=== PATIENT | female | born 1965 | race Caucasian/White ===

== ENCOUNTER 2016-08-26 21:11 | Observation (INO) | payer OTHER ==
[~2016-08-26] VITALS: Ht 162.6 cm; Wt 120.2 kg
--- NOTE | ~2016-08-26 | ECHO ---
Transthoracic Echocardiography Report (TTE) Demographics Patient Name JUAN F CALDERON Date of Study 08/27/2016 Patient Number [id number] Visit Number [id number] Date of 1965 Room Number G6313 Accession Number [id number] Gender Female Age 51 year(s) Referring Elijah Francisco MD [employer] Station Mechanic Rosie Herrera RVT, Physician RDJOSEE Physician Interpreting Cy Roy Machine Sewer Physician A Supervising Ordering Physician Cy Roy MD/MANA A Nurse Stress Pantograph Setter Conclusions Contractility Score Summary Normal Left Ventricular contractility was noted. Summary The estimated left ventricular ejection fraction is 60-65%. Mild concentric left ventricular hypertrophy. Diastolic assessment reveals normal relaxation. Mild tricuspid regurgitation by color Doppler. Procedure Type of Study TTE procedure:2D Echocardiogram. Procedure Date Date: 08/27/2016 Start: 10:46 AM Study Location: Inpatient Portable Technical Quality: Adequate visualization Indications:Chest pain. Appropriate Use Criteria: 8 Patient Status: Routine Rhythm: NSR HR: 71 bpm BP: 125/70 mmHg M-Mode/2D Measurements LV Diastolic Dimension: 4.73 cm LV Systolic Dimension: 3.02 cm LV Septum Diastolic: 0.95 cm LV PW Diastolic: 1.31 cm AO Root Dimension: 2.1 cm Cardiac Output: 4.55 l/min AV Cusp Separation: 1.6 cm RV Diastolic Dimension: 3.37 cm LA volume: 43 ml LVOT: 2 cm RV Base: 2.5 cm LVOT VTI: 20.4 cm RV Mid: 2.86 cm LV Stroke volume: 64.06 ml TAPSE: 1.66 cm TDI-S': 10.3 cm/s Doppler Measurements AV Peak Velocity: 1.23 m/s MV Peak E-Wave: 0.73 m/s AV Peak Gradient: 6.05 mmHg MV Peak A-Wave: 0.55 m/s AV Mean Gradient: 3 mmHg MV E/A Ratio: 1.31 LVOT Peak Velocity: 0.9 m/s MV P1/2t: 75 msec TR Gradient:24.4 mmHg PV Peak Velocity: 1.01 m/s Estimated RAP:5 mmHg PV Peak Gradient: 4.08 mmHg Estimated RVSP: 29 mmHg Estimated PASP: 29.4 mmHg E' Septal Velocity: 0.08 m/s A' Septal Velocity: 0.1 m/s E' Lateral Velocity: 0.1 m/s A' Lateral Velocity: 0.08 m/s Findings Left Ventricle Mild concentric left ventricular hypertrophy. Diastolic assessment reveals normal relaxation. Right Ventricle Normal right ventricular size Mildly reduced right ventricular function. Left Atrium Normal left atrial size. There is no evidence of patent foramen ovale or atrial septal defect by color Doppler. Right Atrium Normal right atrial size. IVC measures 1.50 cm with inspiratory collapse. Mitral Valve Normal mitral valve structure and function. Aortic Valve Normal aortic valve structure and function. Tricuspid Valve Mild tricuspid regurgitation by color Doppler. Normal estimated pulmonary artery pressure. Pulmonic Valve Normal pulmonic valve structure and function. Pericardial Effusion No evidence of pericardial effusion. Epicardial fat pad noted. Miscellaneous Visualized portions of the aortic root and ascending aorta appear normal in size. Pleural Effusion No evidence of pleural effusion. Contractility Score LV regional wall motion:(0-Non visualized 1-Normal 2-Hypokinesis 3-Akinesis 4-Dyskinesis 5-Aneurysm) Signature dtt: Farrah Benoit dtd: 08/27/16 1046 Physician Self Edit
--- NOTE | ~2016-08-26 | CON ---
PATIENT'S NAME: JUAN F CALDERON [facility] AGE: 51 Y [address] ROOM: [place] [address] LOCATION: GPCU ADMIT DATE: 08/26/2016 Consultation DISCHARGE DATE: 08/27/2016 FAMILY PHYSICIAN: Leonel Nava MD ATTENDING PHYSICIAN: Leonel Nava DATE OF CONSULTATION: 08/27/2016 REASON FOR CARDIOLOGY CONSULT: Chest pain. HISTORY OF PRESENT ILLNESS: This is a 51-year-old female, who has had complaints of atypical chest pain over the last 3 days that last anywhere from minutes to hours. She admits to the pain located in the precordial area and radiating down her left arm towards the ulnar aspect of her hand. She is unable to clearly related to activity. So far during this admission, her EKG and enzymes are negative for changes of ischemia. She underwent coronary angiography in 2010, that showed some narrowing in the proximal LAD and circumflex as well as [id number] LAD, although it was not fully reported on the printout. The cath images were reviewed by Dr. Benoit. There is also notation in the cath images of severe spasm of the RCA at the initial injection. At the time of this consult, the patient is resting in bed and continues to have off and on complaints of chest pain. PAST MEDICAL HISTORY: 1. Hypertension. 2. Hypercholesterolemia. 3. Diabetes mellitus type 2. She does not regularly monitor her blood sugars at home. 4. GERD. 5. Depression. 6. Obesity. FAMILY HISTORY: The patient's father due to an OR at the age of 49 as well as her grandfather had a history of myocardial infarction. She has one brother as well as a sister, who have diabetes mellitus. SOCIAL HISTORY: She is currently with 3 grandchildren. She has a history of smoking x10 years of about 3 cigarettes per day. 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 MEDICATIONS: PATIENT'S NAME: JUAN F CALDERON [facility] AGE: 51 Y [address] ROOM: [place] [address] LOCATION: GPCU ADMIT DATE: 08/26/2016 Consultation DISCHARGE DATE: 08/27/2016 FAMILY PHYSICIAN: Leonel Nava MD ATTENDING PHYSICIAN: Leonel Nava 1. Nitroglycerin drip IV with titration parameters for chest pain. 2. Protonix 40 mg p.o. daily. 3. NovoLog subcu on a mild sliding scale per a.c. and h.s. Accu-Cheks. MEDICATION ALLERGIES: No known medication allergies. REVIEW OF SYSTEMS: Pertinent positive review of systems listed in the HPI. All other review of systems evaluated and negative. PHYSICAL EXAMINATION: VITAL SIGNS: Temperature 97.6, pulse 78, respirations 16, blood pressure 127/70, and O2 saturation 95% on room air. The patient weighs 120.2 kg. SKIN: [place], warm, and dry. EYES: Sclerae clear. No xanthelasmas. ENT: Oral mucosa is pink and moist. No jugular venous distention or carotid bruits. CHEST: Respirations are even and unlabored. There are some basilar rales noted. HEART: Regular rate and rhythm. Normal S1 and S2. No murmurs, rubs, or gallops. ABDOMEN: Soft and nontender, but obese. MUSCULOSKELETAL: Gait is normal. EXTREMITIES: Peripheral pulses palpable, but noted to be 1+. No clubbing, cyanosis, or edema noted. PSYCH: Alert and oriented. Mood and affect are appropriate. IMPRESSION AND PLAN: Per Dr. Benoit: 1. Atypical chest pain. 2. Coronary artery disease. 3. Hypertension. 4. Diabetes mellitus. Due to this patient's multiple risk factors for continual worsening of her coronary artery disease, we will start with a Lexiscan stress test to fully evaluate myocardial perfusion imaging and start her on medical therapy with aspirin 81 mg p.o. daily, Lipitor 80 mg p.o. daily, Coreg 6.25 mg every 12 hours, and lisinopril 5 mg p.o. daily. We will check an echocardiogram to fully evaluate ejection fraction as well as look for wall motion valvular abnormalities. We will also provide her with diabetes education and check a TSH and a urinalysis. We will be able to discontinue her nitroglycerin at this time to proceed with Lexiscan stress testing. We will continue to monitor, evaluate, and treat as appropriate. PATIENT'S NAME: JUAN F CALDERON [facility] AGE: 51 Y [address] ROOM: [place] [id number] [facility] ADMIT DATE: 08/26/2016 Consultation DISCHARGE DATE: 08/27/2016 FAMILY PHYSICIAN: Leonel Nava MD ATTENDING PHYSICIAN: Leonel Nava Thank you for this consult. Thank for allowing [facility] to interact in the care of this patient. INGRID CARDENAS APRN FOR MD TAMEKA CARCAMO/andryl /[id number] d: 08/27/16 1831 t: 09/09/16 0820, CONSULTATION REPORT
--- NOTE | ~2016-08-26 | ESTC ---
Cardiac Perfusion Imaging Demographics Patient Name KVNG Silverman Gender Female Patient Number [id number] Race Visit Number [id number] Ethnicity [employer] Room Number G6313 Accession Number [id number] Height 64 inches Date of 1965 Weight 264 pounds Interpreting Elder Flores Date of study 08/27/2016 Physician Supervising /MANA PALOMARES Technologist Naomi Ronquillo MD Ordering Physician Cy Tarango A occupational therapy technician Stress ECG Reading Cy Roy Nurse Charu Blake Physician A RN Medications Reviewed with Patient prior to Procedure. Procedure Admit Source:Emergency department. Procedure Type: Nuclear Stress Test:Pharmacological, Lexiscan, Cardiolite Stress Test Procedure Start time: 08/27/2016 10:40 Indications: Chest pain, Hypertension and Dyslipidemia. Risk Factors The patient risk factors include:former tobacco use, hypercholesterolemia, hypertension, family history of premature CAD, orally-treated diabetes mellitus, dyslipidemia and ( years not smokin). Conclusions Impression ECG portion of lexiscan stress test is clinically negative for ischemia by diagnostic criteria. Myocardial perfusion imaging is essentially normal. Overall left ventricular systolic function was normal without regional wall motion abnormalities. Calculated LVEF is 68% and TID ratio is 1.17. There are no previous studies for comparison. Stress Protocols Resting ECG SR T changes Pre-stress physical exam: Patient assessed by Dr Benoit prior to testing. Stress Protocol:Pharmacologic Predicted HR: 170 bpm ECG Findings Indeterminate ECG due to baseline abnormalities. Arrhythmias No rhythm abnormality. Symptoms Shortness of breath. Stress Interpretation Appropriate hemodynamic response to Lexiscan. No significant ST-T wave changes with Lexiscan. ECG portion is negative for ischemia by diagnostic criteria. Imaging Results Summed scores - Summed stress score: 8 - Summed rest score: 2 - Summed difference score: 6 Stress ejection Ejection fraction:68 % EDV :88 ml ESV :28 ml Stroke volume :60 ml LV mass :124 gr Imaging Protocols Rest Stress Isotope:Tc99m Sestamibi IV Isotope: Tc99m Sestamibi IV Isotope dose:15.5 mCi Isotope dose:48.8 mCi Date:08/27/2016 09:15 Date:08/27/2016 10:49 Technique: SPECT Technique: Gated Supine SPECT Supine IV remains in place after procedure. Scan Time:45-60 minutes post Scan Time:45-60 minutes post injection injection Procedure Medications - Regadenoson (Lexiscan) 0.4 mg IV over 10-15 sec. I.V. 0.4 mg. Medications administered per verbal order and read back to physician prior to administration. Medical History Admission Data Admission date: 08/26/2016 Admission Time: 23:19 Hospital Status: Inpatient. Signatures dtt: CLARE BACON dtd: 08/27/16 1040 Physician Self Edit
--- NOTE | ~2016-08-26 | HP ---
PATIENT'S NAME: JUAN F CALDERON [facility] AGE: 51 Y [address] ROOM: [place] [address] LOCATION: GPCU ADMIT DATE: 08/26/2016 History & Physical DISCHARGE DATE: FAMILY PHYSICIAN: Leonel Nava MD ATTENDING PHYSICIAN: Leonel Nava DATE OF SERVICE: CHIEF COMPLAINT: Chest pain. HISTORY OF PRESENT ILLNESS: The patient is a 51-year-old female, who presents with chest pain for three days, but has gotten worse with left upper extremity pain. The patient denies any headaches, fevers, chills, nausea, vomiting, shortness of breath, abdominal pain. The patient has significant family history for father, who of a fatal OR in his late 40s. PAST MEDICAL HISTORY: 1. Gastroesophageal reflux disease. 2. Diabetes mellitus type 2, noninsulin dependent. 3. Hypercholesterolemia. 4. Depression. 5. Obesity. PAST SURGICAL HISTORY: Heart catheterization. SOCIAL HISTORY: The patient denies any tobacco use. FAMILY HISTORY: Significant for father, who in his late 40s from fatal OR. MEDICATIONS: Please see sheet. ALLERGIES: ISOSORBIDE MONONITRATE CAUSES HEADACHES. REVIEW OF SYSTEMS: Complete review of systems obtained, pertinent positives and negatives as mentioned in the HPI. OBJECTIVE: PATIENT'S NAME: JUAN F CALDERON [facility] AGE: 51 Y [address] ROOM: [place] [address] LOCATION: GPCU ADMIT DATE: 08/26/2016 History & Physical DISCHARGE DATE: FAMILY PHYSICIAN: Leonel Nava MD ATTENDING PHYSICIAN: Leonel Nava VITAL SIGNS: Temperature 97.6, pulse 98, respirations 16, blood pressure 164/104. GENERAL: The patient is alert and oriented and appears in mild distress through her chest pain. HEENT: Head; normocephalic, atraumatic. Eyes, conjunctivae clear. No scleral icterus. Mouth, oropharynx is grossly moist and patent. No lesion or exudates. NECK: Supple. No lymphadenopathy or thyromegaly. HEART: Regular rate and rhythm. No rubs, murmurs, or gallops. LUNGS: Clear to auscultation bilaterally. ABDOMEN: Bowel sounds present. Nontender. EXTREMITIES: No cyanosis, clubbing, or edema. VASCULAR: Pulses are +2 and equal. SKIN: No rash or lesions. LYMPHATICS: No lymphadenopathy. NEUROLOGIC: Cranial nerves 2 through 12 grossly intact. LABORATORY DATA: D-dimer and heart enzymes were negative. EKG was noted. White blood cell count and hemoglobin were normal. BMP was normal except for an elevated sugar of 244. ASSESSMENT: 1. Chest pain. 2. Diabetes mellitus type 2, non-insulin dependent. 3. Hyperlipidemia. 4. Gastroesophageal reflux disease. 5. Depression. 6. Obesity. PLAN: At this time, we will admit the patient to cardiology followup. We will place on telemetry and trend out her enzymes every 6 hours. We will make the patient n.p.o. after midnight and do IV normal saline. We will do morphine for pain and Protonix for her GERD. We will monitor hypertension or her blood pressure and treat if necessary. Dr. Nava is to follow. IDRIS VILLARREAL MD RLG/modl PATIENT'S NAME: JUAN F CALDERON [facility] AGE: 51 Y [address] ROOM: [place] [address] [facility] ADMIT DATE: 08/26/2016 History & Physical DISCHARGE DATE: FAMILY PHYSICIAN: Leonel Nava MD ATTENDING PHYSICIAN: Leonel Nava /[id number] D: [id number] T: [id number] HISTORY & PHYSICAL
--- NOTE | ~2016-08-26 | ER ---
PATIENT'S NAME: JUAN F CALDERON [facility] AGE: 51 Y [address] ROOM: [place] [address] LOCATION: GPCU ADMIT DATE: 08/26/2016 ER/Outpatient Report DISCHARGE DATE: FAMILY PHYSICIAN: Leonel Naav MD ATTENDING PHYSICIAN: Leonel Nava Admission date and time documented on the medical record. I saw the patient at 2120 hours. CHIEF COMPLAINT: Chest pain. HISTORY OF PRESENT ILLNESS: The patient is a 51-year-old female, who has mid to lower substernal left anterior chest pain, radiating down her left arm, numb and tingly in her hand. She has had this off and on for 72 hours. She has some nausea without vomiting. She has generalized weakness. She has some mild shortness of breath. No diaphoresis, lightheadedness, or dizziness. No fall or trauma. No recent colds, coughs, flus, fever, chills, or sweats. No headache, eyes, ears, nose, throat, neck, or spine pain. No syncope or near syncope. No joint or muscle swelling, redness, or pain. No skin eruptions or rash. Does have erj-kecipgz-jxrersagx diabetes mellitus type 2. No other endocrine problems. No neuro changes. No psych issues. HOME MEDICATIONS: See attached medication list. ALLERGIES: NONE. SOCIAL HISTORY: Nonsmoker, nondrinker. SIGNIFICANT PAST MEDICAL HISTORY: Remote tobacco abuse, hypertension, gvz-nzqatsp-fmucvxlhh diabetes mellitus. OPERATIONS: Right hip surgery, back surgery, cardiac catheterization. REVIEW OF SYSTEMS: All systems reviewed by me are negative with the exception of those discussed in the history of present illness. PHYSICAL EXAMINATION: VITAL SIGNS: Temperature 97.6 tympanic, pulse 98, respirations 16, blood PATIENT'S NAME: JUAN F CALDERON [facility] AGE: 51 Y [address] ROOM: [place] [address] LOCATION: GPCU ADMIT DATE: 08/26/2016 ER/Outpatient Report DISCHARGE DATE: FAMILY PHYSICIAN: Leonel Nava MD ATTENDING PHYSICIAN: Leonel Nava pressure 164/104, O2 saturation on room air is 97%. Lutz Coma Scale is 15. HEAD: Normocephalic. EYES, EARS, NOSE, THROAT: Clear. Mucous membranes moist. NECK: Negative. LUNGS: Clear. HEART: Regular. The patient has some tenderness in the left anterior chest wall to palpation, questionable reproduction of her chest pain. ABDOMEN: Moderately obese, soft, nondistended, nontender. Good bowel tones. No organomegaly or abnormal mass palpable. EXTREMITIES: Intact. NEUROVASCULAR: Intact. SKIN: Clear. No skin eruptions or rash. LABORATORY DATA AND X-RAYS: EKG showed sinus rhythm. No acute ST elevation, ischemic change, or arrhythmia. Chest x-ray showed no acute infiltrate or changes. We will review x-ray with the radiologist. LABORATORY DATA: D-dimer was 0.20. ProBNP was 42. CMS was normal except for an elevated glucose of 244. Elevated AST of 63. Magnesium was 2.0. CPK was 46. Point- of-care cardiac enzymes were normal. White count was 8200, 49 segs, 43 lymphs, 6 monos, 2 eos, 1 baso, hemoglobin was 14.5, hematocrit 43.9, platelet count is 186,000. PTT was 25, pro-time was 10 with an INR 0.95. EMERGENCY DEPARTMENT COURSE: The patient did take 2 adult aspirin 325 mg a piece orally prior to admission to the emergency room. We did give her 3 sublingual nitroglycerin that brought her pain from 8 over 10 to a 4 to 5 over 10. I did start her on an IV nitroglycerin drip. I did give her morphine IV for pain. IMPRESSION: 1. Chest pain, possible unstable angina. Rule out myocardial injury. 2. Phi-lgaruwp-jlrumbped diabetes mellitus type 2. 3. Hypertension. 4. Remote tobacco abuse. PLAN: I did discuss this patient with Dr. Lemons for Dr. Leonel Nava. We will admit the patient to the PCU telemetry outpatient observation for further evaluation. May need to have a cardiac stress test, possible echocardiogram. Discussion ensued with the patient concerning my findings and recommendations, she understands. Accumulated critical time 30 minutes. PATIENT'S NAME: JUAN F CALDERON [facility] AGE: 51 Y [address] ROOM: [place] [address] LOCATION: GPCU ADMIT DATE: 08/26/2016 ER/Outpatient Report DISCHARGE DATE: FAMILY PHYSICIAN: Leonel Nava MD ATTENDING PHYSICIAN: Leonel Nava MD MURRAY ALAN/modl /[id number] d: 08/27/16 0400 t: 08/27/16 1708, OUTPATIENT REPORT
[2016-08-26 21:54] LABS: BASOPHIL # 0.1 K/uL (0.0-0.2); EOSINOPHIL # 0.1 K/uL (0.0-0.5); EOSINOPHIL % 1.7 %; HEMATOCRIT 43.9 % (33.0-46.0); HEMOGLOBIN 14.5 g/dL (10.0-15.0); IMMATURE GRANULOCYTE % 0.2 %; LYMPHOCYTE # 3.5 K/uL (0.8-4.0); LYMPHOCYTE % 42.8 %; MCH 28.7 pg (27.0-34.0); MCV 86.9 fl (83.0-98.0); MONOCYTE # 0.5 K/uL (0.0-1.0); MONOCYTE % 5.7 %; MPV 11.1 fl (9.4-12.4); NEUTROPHIL % 48.6 %; NRBC % 0 /100WBC (0-0.00); PLATELET COUNT 186 K/uL (150-450); RBC 5.05 M/uL (3.50-5.50); RDW-CV 12.9 % (11.9-14.6); WBC 8.2 K/uL (4.0-11.0)
[2016-08-26 22:04] LABS: INR - (THERAPEUTIC) 0.95 (0.92-1.07); PTT 25 SECONDS (25-32)
[2016-08-26 22:15] LABS: ALBUMIN 3.9 gm/dL (3.5-5.0); ALK PHOS 87 IU/L (33-138); ALT 75 IU/L (12-78); ANION GAP 15.9 (10.0-19.0); AST 63 IU/L (10-40); BLOOD UREA NITROGEN 11 mg/dL (6-24); CHLORIDE 102 mMol/L (96-110); CO2 21 mMol/L (22-32); CPK 46 IU/L (21-215); ESTIMATED GFR (MDRD EQUATION) 59; POTASSIUM 3.9 mMol/L (3.7-5.1); SODIUM 135 mMol/L (135-145); TOTAL BILIRUBIN 0.3 mg/dL (0.0-1.5)
[2016-08-27 00:11] LABS: CPK 40 IU/L (21-215)
[2016-08-27] MEDS ORDERED: INVOKAMET XR 11 EAC1 PO (00:42)
[2016-08-27] MEDS ORDERED: CELEXA40 MG PO (00:43)
[2016-08-27] MEDS ORDERED: PRAVACHOL40 MG PO (00:43)
[2016-08-27] MEDS ORDERED: PROTONIX40 MG PO (00:44)
--- NOTE | 2016-08-27 01:49 | NUR ---
Pt is a 51 yr old female who arrived to [place] [address] on 08/27. Admitted for chest pain by Dr. Lemons. Pt regularly sees Dr. abbie mejia at [facility]. Pt stated she had been experiencing chest pain for two days and on 08/26 for "a couple hours" the chest pain increased and radiated down her left arm "like lightning". Pt decided to go to [facility] ER and arrived at 2109. No known drug allergies. Hx of HTN, hypercholesterol, kidney stones, bronchitis, diabetic- non insulin dep, occasional smoker.
--- NOTE | 2016-08-27 04:26 | NUR ---
Significant Event: A/O x3. Afebrile. C/O chest pain/arm 08/09. Gave morphine 1mg x1. VSS on RA. SBP 120-150s. HR 70-90s. NS @ 125ml/hr. NPO since midnight. Nitro gtt @ 5mcg. Follow up: Continue to monitor per plan of care.
[2016-08-27 05:21] LABS: CPK 40 IU/L (21-215)
--- NOTE | 2016-08-27 10:32 | NUR ---
Diabetes consult: Patient's family at bedside reporting she is down having a stress test. Family provided with assessment form.
[2016-08-27 14:29] LABS: CPK 43 IU/L (21-215)
[2016-08-27] MEDS ORDERED: LIPITOR40 MG PO (15:38)
[2016-08-27] MEDS ORDERED: PRINIVIL OR ZES10 MG PO (15:39)
[2016-08-27] MEDS ORDERED: LEVOTHROID (SY50 MCG PO (15:41)
--- NOTE | 2016-08-27 17:19 | NUR ---
PATIENT GIVEN WRITTEN DISMISSAL INSTRUCTIONS INCLUDING NEW HOME MEDICATION LIST WITH INFORMATION ON NEW MEDS, PRESCRIPTIONS, FOLLOW-UP APPOINTMENT WITH PCP, DIET AND ACTIVITY RESTRICTIONS WELL A MD ORDER WITH RETURN TO WORK DATE. PATIENT STATES UNDERSTANDING OF INFORMATION DISCUSSED WITH RN. PIV REMOVED FROM R) HAND PIV WITH GAUZE AND COBAN APPLIED. TELEMETRY DC'D AND PATIENT DRESSED IN OWN CLOTHING. TAKEN TO FRONT [facility] ENTRANCE VIA WHEELCHAIR ACCOMPANIED BY NURSE AIDE AND BELONGINGS AT 1715. OK FOR PATIENT TO DRIVE SELF HOME.
== END 2016-08-27 17:15 | disposition disaster alternative care site (69) ==
LOC: GMED 21:11 → GPCU 23:19
PROVIDERS: Emergency Medicine; ADMIT Family Medicine
DX: R07.89 Other chest pain (principal); K21.9 Gastro-esophageal reflux disease without esophagitis; E11.9 Type 2 diabetes mellitus without complications; E78.00 Pure hypercholesterolemia, unspecified; F32.9 Major depressive disorder, single episode, unspecified; E66.9 Obesity, unspecified; I25.10 Atherosclerotic heart disease of native coronary artery without angina pectoris; E78.5 Hyperlipidemia, unspecified; I10 Essential (primary) hypertension; Z98.890 Other specified postprocedural states; Z87.891 Personal history of nicotine dependence; Z68.42 Body mass index [BMI] 45.0-49.9, adult
CPT/HCPCS: A9500; G0378; J1650; J2270; J2785; J7030

== ENCOUNTER 2016-08-31 16:54 | Observation (INO) | payer OTHER ==
[~2016-08-31] VITALS: Ht 162.6 cm; Wt 119.4 kg
--- NOTE | ~2016-08-31 | HP ---
[facility] 51 [facility] [address] ROOM: [place] [address] LOCATION: GPCU ADMIT DATE: 08/31/2016 History & Physical DISCHARGE DATE: FAMILY PHYSICIAN: Leonel Nava MD ATTENDING PHYSICIAN: Payam Lemons DATE OF SERVICE: CHIEF COMPLAINT: Chest pain with left upper extremity pain. HISTORY OF PRESENT ILLNESS: The patient is a 51-year-old female, who was recently admitted for chest pain and had a stress test to rule out, but presented to the emergency department again with increasing severe chest pain radiating down her left arm. The patient was also having nausea with it and also mild headache. The patient denies any shortness of breath, but states she does feel a pressure like someone is standing on her chest. The patient denies any abdominal pain, numbness, or tingling. PAST MEDICAL HISTORY: 1. Depression. 2. Diabetes mellitus type 2. 3. Essential hypertension. 4. Gastroesophageal reflux disease. 5. Anxiety. 6. Hypercholesterolemia. PAST SURGICAL HISTORY: None. FAMILY HISTORY: Significant for myocardial infarction in father in his late 40s, that was fatal. SOCIAL HISTORY: The patient denies any tobacco use. ALLERGIES: ISOSORBIDE MONONITRATE, CAUSES SEVERE HEADACHES. REVIEW OF SYSTEMS: A complete review of systems obtained, pertinent positives and negatives as mentioned in the HPI. PATIENT'S NAME: JUAN F CALDERON [facility] AGE: 51 Y [address] ROOM: [place] [address] LOCATION: GPCU ADMIT DATE: 08/31/2016 History & Physical DISCHARGE DATE: FAMILY PHYSICIAN: Leonel Nava MD ATTENDING PHYSICIAN: Payam Lemons OBJECTIVE: VITAL SIGNS: Stable. GENERAL: The patient is alert and oriented, in mild distress due to her pain. HEENT: Head: Normocephalic and atraumatic. Eyes: Conjunctivae clear. No scleral icterus. Mouth: Oropharynx is grossly moist and patent. No lesion or exudates. NECK: Supple. No lymphadenopathy or thyromegaly. HEART: Regular rate rhythm. No rubs, murmurs, or gallops. LUNGS: Clear to auscultation bilaterally. ABDOMEN: Bowel sounds present. Nontender. EXTREMITIES: No cyanosis, clubbing, or edema. VASCULAR: Pulses are 2+. SKIN: No rash or lesions. LYMPHATICS: No lymphadenopathy. NEURO: Cranial nerves II through XII are grossly intact. LABORATORY DATA: Troponins and EKG were negative. ASSESSMENT: 1. Chest pain. 2. Depression. 3. Anxiety. 4. Diabetes. 5. Hypertension. 6. Gastroesophageal reflux disease. 7. Hypercholesterolemia. PLAN: At this time, we will trend out her enzymes and have her on secured entrance monitor. We will have Cardiology see in the morning. We will continue to control her pain with morphine and continue her on PPI for GERD. We will monitor her diabetes and also her blood pressure. Dr. Nava to follow this. MD CELESTINO MONTERO/amy /[id number] D: [id number] T: [id number] HISTORY & PHYSICAL
--- NOTE | ~2016-08-31 | ER ---
PATIENT'S NAME: JUAN F CALDERON [facility] AGE: 51 Y [address] ROOM: [place] [address] LOCATION: GPCU ADMIT DATE: 08/31/2016 ER/Outpatient Report DISCHARGE DATE: 09/02/2016 FAMILY PHYSICIAN: Leonel Nava MD ATTENDING PHYSICIAN: Payam Lemons Time of Patient's Arrival: 1654 hours. Time of Patient's Evaluation: 1654 hours. CHIEF COMPLAINT: Chest pain and shortness of breath. HISTORY OF PRESENT ILLNESS: This is a 51-year-old female who presents to the ER, who states she is having chest pressure, shortness of breath, and feels lightheaded. She states that she was recently admitted to the hospital on Thursday for similar symptoms, for cardiac rule out. She states that they did do an echo and a stress test, everything turned out okay, but she states that her chest pain has continued. She states it got worse today. She feels sweaty, lightheaded, it makes her feel nauseated. She states she has chest pain, it is in the left side of her chest, it radiates down the left arm. The patient states she does feel short of breath with exertion. The patient denies any fever or chills. She states that she is just tired of feeling critty. ALLERGIES: ISOSORBIDE MONONITRATE WHICH CAUSES SEVERE HEADACHES. PAST MEDICAL HISTORY: Depression, diabetes type 2, essential hypertension, acid reflux, anxiety, and hypercholesterolemia. PAST SURGICAL HISTORY: Negative. FAMILY HISTORY: Father in his late 40s of [place] that was fatal. REVIEW OF SYSTEMS: All systems are reviewed and are negative with the exception of those discussed in the HPI. PHYSICAL EXAMINATION: VITAL SIGNS: Weight 118 kg taken, blood pressure is 154/70, pulse 75, respirations 20, temperature 97.7 degrees tympanically, and saturation 100% on room air. Darshan Coma Score is 15. PATIENT'S NAME: JUAN F CALDERON [facility] AGE: 51 Y [address] ROOM: [place] [address] LOCATION: GPCU ADMIT DATE: 08/31/2016 ER/Outpatient Report DISCHARGE DATE: 09/02/2016 FAMILY PHYSICIAN: Leonel Nava MD ATTENDING PHYSICIAN: Payam Lemons GENERAL: Alert, obese female, in [id number] distress. HEENT: Head: Normocephalic. She does display moist mucous membranes. Eyes: Pupils are equal and reactive to light. NECK: Supple. No lymphadenopathy. LUNGS: Diminished throughout. The patient is hyperventilating. No wheezes or crackles. HEART: Regular rate and rhythm. ABDOMEN: Soft, it is nontender. She has good bowel sounds throughout. MUSCULOSKELETAL: She does have full range of motion of all limbs. SKIN: She is diaphoretic. No rashes were seen. LABORATORY DATA: White blood cells 9.6, hemoglobin 14.7, and platelets 193. PTT is 24. D- dimer is 0.27. CMS: Sodium 134, potassium 3.8, BUN 11, and creatinine 1.1. Alkaline phosphatase is 80, AST is 94, ALT is 83. Amylase 20, lipase 142. CPK is 41, CK-MB is less than 0.5. ProBNP is 42. Magnesium is 1.9. Chest x- ray was negative for any infiltrate. EKG, sinus rhythm. IMPRESSION: 1. Chest pain, improved with nitroglycerin. 2. Hypertension. 3. Anxiety. ASSESSMENT AND PLAN: We did start an IV here in the emergency room. We did give her some IV fluids and a total of 8 mg of Zofran for her nausea. The nitroglycerin did improve her pain, it also brought her blood pressure down. We did continue to monitor her, she remained stable throughout her ER stay here. Dr. Lemons is construction trades contractor for [facility], and he will be coming in to readmit the patient for further observation. The patient and the patient's understand and agree with care. ALINA THOMAS PA-C FOR DO ONESIMO BARBOZA/amy /[id number] d: t: 09/10/16 1350, OUTPATIENT REPORT
--- NOTE | ~2016-08-31 | CATH ---
Cardiac Diagnostic + PCI Report Demographics Patient Name KVNG Silverman Gender Female Date of 1965 Age 51 year(s) Patient Number [id number] Date of Study 09/01/2016 Visit Number [id number] Room Number G6[address] [place] [id number] Ht 162.56 cm Wt 119.4 kg Referring Elijah Francisco MD Primary Physician Physician [facility] Secondary Physician Physician Sandra FLORES Diagnostic [facility] Assisting Physician Physician Sandra FLORES Interventional [facility] Physician Traffic Sergeant Physician Sandra FLORES Findings and Conclusions Diagnostic Findings and Conclusion 1 vessel CAD: mid LAD 50% Slow flow in RCA Diagnostic Recommendations iFR of mid LAD Interventional Findings and Conclusion iFR mid LAD is 0.92 x 3 readings Interventional Recommendations Medical rx for slow flow RCA. she has significant improvement in her symptoms with nitroglycerin. Will start imdur today 30mg PO daily. Given normal stress test and non physiological iFR, there is no indication to stent the mLAD. Patient has been instructed to not lift anything more than 5 pounds for 1 week. Aggressive risk factor management. Aggressive medical therapy for coronary artery disease. I would like to thank Dr. Lemons for the opportunity to participate in the care of Gordon . Procedure Description The patient was brought to the diagnostic cardiac catheterization-EP laboratory in the fasting, non-sedated state. Informed consent was obtained in the written and verbal form after the risks and benefits were explained. The patient had no further questions and agreed to proceed. The planned puncture-incision site(s) were shaved and prepped with ChloraPrep and draped in the usual sterile manner. Conscious sedation, supplemental oxygen, and pain control medications were delivered by a registered nurse under physician guidance. Surface ECG rhythm, blood pressure measurement, and pulse oximetry were monitored throughout the procedure. Arterial access. The access site was infiltrated with lidocaine. The vessel was entered with the Seldinger technique. A sheath was advanced into the vessel and used for catheter placement. Selective right coronary angiography. A catheter was advanced into the right coronary vessel ostium under fluoroscopic guidance. Contrast was injected by hand. Images were obtained in multiple projections. Selective left coronary angiography. A catheter was advanced into the left coronary vessel ostium under Fluoroscopic guidance. Contrast was injected by hand. Images were obtained in multiple projections. iFR measurement was performed. The vessel was entered with a guiding catheter. The iFR wire was normalized and then advanced across the lesion. Measurements were taken. Arterial artery hemostasis was achieved. The patient was transferred to a regular nursing floor via cart accompanied by a nurse. The patient left the laboratory in stable condition. Diagnostic Cath Status: Urgent Procedure Procedure Type Diagnostic procedure:Angiography:, Coronary Angios w/C PCI procedure:Additional Imaging:, FFR/iFR: Indications: Chest pain. The procedure was explained in detail to the patient. Risks, complications and alternative treatments were reviewed. Written consent was obtained. Medications Reviewed with Patient prior to Procedure. Angiographic Findings Dominance: Right Cardiac Arteries and Lesion Findings LMCA: Normal (0% Stenosis). LAD: Lesion on Mid LAD: Mid subsection.50% stenosis . Devices used - Verrata Pressure Wire. Number of passes: 1. Lesion on Prox LAD: Proximal subsection.30% stenosis . LCx: OM is normal Lesion on Dist CX: Distal subsection.30% stenosis . RCA: Normal (0% Stenosis).RCA, PDA, and PL are normal but with slow flow. Ramus: small Coronary Tree Procedure Data Procedure Date Date: 09/01/2016Start: 12:49 PMEnd: 01:23 PM Entry Locations - Retrograde Percutaneous access was performed through the Right Ulnar Artery (Primary location). A 6 Fr sheath was inserted. Hemostasis was successfully obtained using Mechanical Compression. Entry Comments: with US guided access. . Closure Comments: 16cc's of air applied in R-band by Guy.. Procedure Medications Order and Administration + + + + + !Time !Medication !Dosage !Route ! + + + + + !09/01/2016 12:35 PM !Fentanyl !50 mcg !I.V. ! + + + + + !09/01/2016 12:43 PM !Versed !1 mg !I.V. ! + + + + + !09/01/2016 12:48 PM !Versed !1 mg !I.V. ! + + + + + !09/01/2016 01:00 PM !Radial Verapamil !2.5 mg !I.A. ! + + + + + !09/01/2016 01:03 PM !0.9% NaCl !500 ml !I.V. bolus ! + + + + + !09/01/2016 01:03 PM !Heparin (ACC_3) !5000 units !I.V. ! + + + + + !09/01/2016 01:04 PM !Fentanyl !25 mcg !I.V. ! + + + + + !09/01/2016 01:09 PM !Heparin (ACC_3) !3000 units !I.V. ! + + + + + Devices Used - A5 Fr. BS JR 4 Diag. Catheterwas used for:Right coronary angiography. - A5 Fr. BS JL 3.5 Diag. Catheterwas used for:Left coronary angiography. - A6 Fr. EBU 3 Guide Catheterwas used for:Fractional Flow Lincoln measurments. Comments: iFR measuremnts. Contrast Material - Isovue 02333 ml Fluoroscopy Time: Diagnostic: 6:42 minutes. Total: 6:42 minutes. Fluoroscopy Dose: Diagnostic: 881 mGy. Total: 881 mGy. Estimated Blood Loss: 15 ml. Medical History Risk Factors The patient risk factors include:treated hypertension, family history of premature CAD appeared at age 49, insulin-treated diabetes mellitus, last creatinine: 1.1 mg/dl, creatinine clearance: 115.33 ml/min, dyslipidemia and former tobacco use. Admission Data Admission Date: 08/31/2016 Admission Time: 08:24 PM Admit Source: Emergency department Insurance Payors: Private health insurance. Admission Medications + +------+------+ + + + + !Medication !Dosage!Times !Last !Last !Administered !Comments ! ! ! !Per !Delivery !Delivery ! ! ! ! ! !Day !Date !Time ! ! ! + +------+------+ + + + + !Statin (any)! ! ! ! !Yes ! ! + +------+------+ + + + + !GUILLERMO ! ! ! ! !Yes ! ! !Inhibitor ! ! ! ! ! ! ! !(any) ! ! ! ! ! ! ! + +------+------+ + + + + Clinical Evaluation Leading to Procedure - The patient's CAD presentation was assessed as: Unstable angina. - The patient's anginal syndrome during the past two weeks was assessed as: Class IV according to the [place] Cardiovascular Society Classification System (CCS). - The patient has been in a state of heart failure within the past two weeks. - The patient's heart failure status was assessed as NYHA Class I. Hemodynamics Condition: Rest O2 Consumption: Estimated: 206.58Heart Rate: 59 bpm Pressures (mmHg) +-----+ + !Site !Pressure ! +-----+ + !AO !76/48 (62) ! +-----+ + !AO !78/52 (65) ! +-----+ + Shunts Oxygen Values O2 Capacity 199.92 O2 Consumption 206.58 Discharge Data Discharge Date: 09/02/2016 Hospital Status: Inpatient Signatures dtt: SANDRA BACON dtd: 09/01/16 1249 Physician Self Edit
[~2016-08-31 16:54] MED LIST: CELEXA40 MG PO; INVOKAMET XR 11 EAC1 PO; LEVOTHROID (SY50 MCG PO; LIPITOR40 MG PO; PRAVACHOL40 MG PO; PRINIVIL OR ZES10 MG PO; PROTONIX40 MG PO
[2016-08-31 17:23] LABS: BASOPHIL # 0.1 K/uL (0.0-0.2); BASOPHIL % 0.6 %; EOSINOPHIL # 0.2 K/uL (0.0-0.5); EOSINOPHIL % 1.6 %; HEMATOCRIT 43.6 % (33.0-46.0); HEMOGLOBIN 14.7 g/dL (10.0-15.0); IMMATURE GRANULOCYTE % 0.2 %; LYMPHOCYTE # 4.2 K/uL (0.8-4.0); LYMPHOCYTE % 43.8 %; MCH 29.1 pg (27.0-34.0); MCHC 33.7 gm/dL (32.0-36.5); MCV 86.3 fl (83.0-98.0); MONOCYTE # 0.5 K/uL (0.0-1.0); MONOCYTE % 5.7 %; MPV 11.2 fl (9.4-12.4); NEUTROPHIL # (ANC) 4.6 K/uL (1.8-7.8); NEUTROPHIL % 48.1 %; NRBC % 0 /100WBC (0-0.00); PLATELET COUNT 193 K/uL (150-450); RBC 5.05 M/uL (3.50-5.50); RDW-CV 13.1 % (11.9-14.6); WBC 9.6 K/uL (4.0-11.0)
[2016-08-31 17:34] LABS: INR - (THERAPEUTIC) 0.98 (0.92-1.07); PROTIME 10.3 SECONDS (9.8-11.4); PTT 24 SECONDS (25-32)
[2016-08-31 17:42] LABS: ALBUMIN 3.9 gm/dL (3.5-5.0); ALK PHOS 80 IU/L (33-138); ALT 83 IU/L (12-78); ANION GAP 14.8 (10.0-19.0); AST 94 IU/L (10-40); BLOOD UREA NITROGEN 11 mg/dL (6-24); CALCIUM 8.9 mg/dL (8.5-10.5); CHLORIDE 102 mMol/L (96-110); CO2 21 mMol/L (22-32); CPK 41 IU/L (21-215); CREATININE 1.1 mg/dL (0.5-1.1); ESTIMATED GFR (MDRD EQUATION) 53; MAGNESIUM 1.9 mg/dL (1.8-2.6); POTASSIUM 3.8 mMol/L (3.7-5.1); SODIUM 134 mMol/L (135-145); TOTAL PROTEIN 8.1 g/dL (6.0-8.4)
[2016-08-31 17:48] LABS: TOTAL BILIRUBIN 0.4 mg/dL (0.0-1.5)
[2016-08-31 19:45] LABS: CPK 37 IU/L (21-215)
[2016-08-31] MEDS ORDERED: XYZAL5 MG PO (22:20)
[2016-09-01 01:32] LABS: CPK 37 IU/L (21-215)
--- NOTE | 2016-09-01 05:38 | NUR ---
Patient comes into the ER with complaints of chest pain, vomiting, and increased SOB. Cardiac workup (-). D-dimer (-). On admission VSS on RA. Still complains of chest pain. Lungs clear. Bowel sounds present. Sinus Rhythm. IV saline lock lt hand. Reg diet. Home meds need addressed. Kept NPO since midnight. Cardioloy to see in AM.
--- NOTE | 2016-09-01 05:43 | NUR ---
Patient A/Ox3. VSS on RA. UP adlib in room. Lungs clear. Bowel sounds present. Still complaint of chest pain, SOB with activity, and nausea. Morphine 1mg x3 for chest pain with relief noted. Zofran x1 for nausea. Cardiac enzymes still (-). NPO since midnight just in case of heart cath today.
[2016-09-01 07:20] LABS: CPK 37 IU/L (21-215)
--- NOTE | 2016-09-01 11:37 | NUR ---
(-)MST; WT LOSS IS MINIMAL AND NOT SIG. AMOUNT. BMI: 45.2. PO INTAKE WAS 75-100% DURING PREVIOUS ADMIT A FEW DAYS AGO. WILL ASSIST NEEDED.
--- NOTE | 2016-09-01 17:06 | NUR ---
Significant Event:Patient did have heart cath today, no interventions. Used the right wrist-ulna- R band off. Has bandaid and coban to site. No bleeding or swelling noted. Appetite good. Had Zofran before heart cath, no c/o nausea since. Had MS twice prior to cath, none since. Did have Tylenol for headache. Started on Imdur. Follow up:Home in the am
--- NOTE | 2016-09-01 18:35 | NUR ---
D:Patiient left for heart cath at 1230. Patient returned at 1340. Has R band to right ulna. NS infusing at 150 ml/hr. Releived that she didn't have any blockages. P:Monitor post cath
--- NOTE | 2016-09-02 04:32 | NUR ---
A/Ox3. VSS on RA. Independent in room. Lungs clear, bowel sounds present. c/o headache, nausea and vomiting. excedrine migraine given x2. Left hand IV saline locked.
[2016-09-02] MEDS ORDERED: ASPIRIN LO-DOSE81 MG PO (10:53)
[2016-09-02] MEDS ORDERED: IMDUR30 MG PO (10:57)
[2016-09-02] MEDS ORDERED: EXCEDRIN EXTRA1 TAB PO (10:59)
[2016-09-02] MEDS ORDERED: ZOFRAN4 MG PO (11:01)
--- NOTE | 2016-09-02 11:42 | NUR ---
D/C ORDERS TO HOME RECIEVED. REVIEWED WITH THE PATIENT AND HER SPOUSE ALL D/C INFORMATION INCLUDING MEDICATIONS, F/U APPTS, INSTRUCTIONS, AND CARES. MAGUI PRINTOUTS GIVEN TO THE PATIENT ON ALL NEW MEDICATIONS, POST RADIAL ACCESS SITE CARES, DIABETIC BOOKLET AND INFORMATION, AND CARDIAC DIET-LOW FAT/CHOLESTEROL INFORMATION. PIV D/C'D AND CATHETER INTACT. NOT ELIGIBLE FOR PNEUMONIA VACCINE. WAS GIVEN MD CARDS AND INSTRUCTED TO CALL TOMORROW TO SET UP F/U APPTS DUE TO HOLIDAY TODAY. TAKEN VIA W/C AND ASSOCIATE PROFESSOR OF [employer]RARY [employer] TO THE FRONT ENTRANCE OF THE HOSPITAL AND HER SPOUSE TO DRIVE HER HOME. RT)RADIAL SITE REMAINS SOFT AND C/D/I.
== END 2016-09-02 11:45 | disposition disaster alternative care site (69) ==
LOC: GMED 16:54 → GPCU 20:24
PROVIDERS: Emergency Medicine; ADMIT Family Medicine
DX: I20.0 Unstable angina (principal); F32.9 Major depressive disorder, single episode, unspecified; E11.9 Type 2 diabetes mellitus without complications; I10 Essential (primary) hypertension; K21.9 Gastro-esophageal reflux disease without esophagitis; F41.9 Anxiety disorder, unspecified; E78.00 Pure hypercholesterolemia, unspecified; I25.10 Atherosclerotic heart disease of native coronary artery without angina pectoris; E66.9 Obesity, unspecified; Z68.42 Body mass index [BMI] 45.0-49.9, adult; Z87.891 Personal history of nicotine dependence; Z79.4 Long term (current) use of insulin; Z79.899 Other long term (current) drug therapy; Z88.8 Allergy status to other drugs, medicaments and biological substances
CPT/HCPCS: C1769; C1887; G0378; J1644; J2250; J2270; J2405; J3010; J7030